=== PATIENT | male | born 1980 | race Caucasian/White ===

== ENCOUNTER 2017-12-30 06:49 | Emergency (ER) | payer OTHER ==
[2017-12-30] MEDS ORDERED: LIDOCAINE 1% INJ-PF (10 MG/ML) 30 ML SDV INJ ONE (07:44)
[2017-12-30] MEDS ORDERED: OXYCODONE-ACETAMINOPHEN 5-325 MG TABLET PO ONE (07:50)
[2017-12-30 08:38] LABS: ABSOLUTE BASOPHILS # (AUTO) 0.1 10^3/uL (0.0-0.2); ABSOLUTE EOSINOPHILS # (AUTO) 0.2 10^3/uL (0.0-0.6); ABSOLUTE LYMPHOCYTES (AUTO) 2.3 10^3/uL (0.5-4.7); ABSOLUTE NEUT (AUTO) 9.4 10^3/uL (1.7-8.2); BASOPHILS % (AUTO) 0.5 % (0-2); EOSINOPHILS % (AUTO) 1.7 % (0-6); HEMATOCRIT 44.7 % (37.9-51.0); LYMPHOCYTES % (AUTO) 17.7 % (13-45); MEAN CORPUSCULAR HEMOGLOBIN 27.8 pg (27.0-33.4); MEAN CORPUSCULAR HGB CONC 33.6 g/dL (32.0-36.0); MEAN CORPUSCULAR VOLUME 83 fl (80-97); MONOCYTES % (AUTO) 7.6 % (3-13); PLATELET COUNT 269 10^3/uL (150-450); RED BLOOD COUNT 5.41 10^6/uL (4.35-5.55); RED CELL DISTRIBUTION WIDTH 13.5 % (11.5-14.0); SEGMENTED NEUTROPHILS % (AUTO) 72.5 % (42-78); TOTAL CELLS COUNTED % (AUTO) 100 %
[2017-12-30 08:46] LABS: ANION GAP 10 (5-19); BLOOD UREA NITROGEN 21 mg/dL (7-20); CALCIUM 8.9 mg/dL (8.4-10.2); CARBON DIOXIDE 26 mmol/L (22-30); CHLORIDE 106 mmol/L (98-107); GLUCOSE 110 mg/dL (75-110); POTASSIUM 4.4 mmol/L (3.6-5.0); SODIUM 142.2 mmol/L (137-145)
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
[2017-12-30 10:59] VITALS: BP 134/70
== END 2017-12-30 11:08 | disposition home or self-care (01) ==
LOC: ER 06:49
PROC: 0HQLXZZ Repair Left Lower Leg Skin, External Approach (ICD-10-PCS; principal; 2017-12-30)
DX: S81.012A Laceration without foreign body, left knee, initial encounter (principal); S30.810A Abrasion of lower back and pelvis, initial encounter; S16.1XXA Strain of muscle, fascia and tendon at neck level, initial encounter; S39.012A Strain of muscle, fascia and tendon of lower back, initial encounter; M79.641 Pain in right hand; R10.9 Unspecified abdominal pain; M79.642 Pain in left hand; M25.562 Pain in left knee; M54.9 Dorsalgia, unspecified; M54.2 Cervicalgia; G89.29 Other chronic pain; R10.30 Lower abdominal pain, unspecified; R11.10 Vomiting, unspecified; R10.811 Right upper quadrant abdominal tenderness; V89.2XXA Person injured in unspecified motor-vehicle accident, traffic, initial encounter
CPT/HCPCS: 99284; 36415; 85025; 80048; 73564; 73130; 70450; 71260; 72125; 74177; 12001; L0120; J3490

== ENCOUNTER 2018-04-04 19:38 | Emergency (ER) | payer SELFPAY ==
[2018-04-04] MEDS ORDERED: ASPIRIN 81 MG TABLET, CHEWABLE PO ONE (19:41)
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
[2018-04-04] MEDS ORDERED: DIAZEPAM 5 MG TABLET PO ONE (20:30)
[2018-04-04] MEDS ORDERED: KETOROLAC TROMETHAMINE 60 MG/2 ML SDV IM ONE (20:30)
--- NOTE | 2018-04-04 20:30 | ER Document Report ---
ED General - General Chief Complaint: Chest Pain Stated Complaint: CHEST PAIN Time Seen by Provider: 04/04/18 20:18 Mode of Arrival: Ambulatory Information source: Patient Notes: History of Present Illness Chief Complaint:[ chest pain] [ ] History obtained from [patient] 38 years old presents today with right-sided chest pain radiating to the right back since last evening. He was typing for a long time and the pain occurred during the typing. As long as he stays still the pain is less but when he tried to move backwards or try to sleep pain increases in intensity. Once he lays on the bed the pain goes away. He was concerned therefore he came to the ED. Is not associated with any nausea vomiting palpitation or diaphoresis. Symptoms began:[ today] Onset: [gradual] Timing: [constant, now gone] Quality: ["pain"] Intensity: [moderate] Location: [Right chest wall] Radiation: [none] Migration: [none] Aggravating factors: [none] Relieving factors: [none] Major PE risk factors: [none] Major aortic dissection risk factors: [none] Review of Systems: All other systems negative as reviewed. CONSTITUTIONAL No fever, No chills, No sweats. EYES No eye pain. ENT No URI symptoms, No sore throat, No ear pain. CARDIOVASCULAR + chest pain, No palpitations, No edema. RESPIRATORY No Cough, No SOB, No wheezing. GASTROINTESTINAL No abdominal pain, No nausea, No diarrhea, No vomiting, No GI Bleeding. GENITOURINARY No UTI symptoms. MUSCULOSKELETAL No back pain, No calf swelling, No calf pain. SKIN No Rash. NEUROLOGIC No Headache Physical Exam CONSTITUTIONAL Vital signs reviewed, Patient appears comfortable, Alert and oriented X 3, Normal stature. Morbid obesity HEAD Atraumatic, Normocephalic. EYES Eyes are normal to inspection, No discharge from eyes, Extraocular muscles intact, Sclera are normal, Conjunctiva are normal. ENT Ears normal to inspection, Nose examination normal, Posterior pharynx normal, Mouth normal to inspection. NECK Normal ROM, No jugular venous distention, No meningeal signs, no carotid bruit. RESPIRATORY CHEST Chest is sharply tender over the right trapezoid muscle along the scapula as well as right anterior chest wall., Breath sounds normal, No respiratory distress. CARDIOVASCULAR RRR, No murmurs, Normal S1 S2, No rub, No gallop. ABDOMEN Abdomen is nontender, No pulsatile masses, No other masses, Bowel sounds normal , No distension, No peritoneal signs, No hernias. BACK There is no CVA Tenderness, There is no tenderness to palpation, Normal inspection. UPPER EXTREMITY Inspection normal, No cyanosis, No clubbing, No edema, 2+ radial pulses. LOWER EXTREMITY Inspection normal, No cyanosis, No clubbing, No edema, No calf tenderness, 2+ femoral pulses. NEURO No focal motor deficits, No focal sensory deficits, Speech normal. SKIN Skin is warm, Skin is dry, Skin is normal color. LYMPHATIC No adenopathy in neck. PSYCHIATRIC Normal affect. TRAVEL OUTSIDE OF THE [place] IN LAST 30 DAYS: No - HPI Notes: Dictated - Related Data Allergies/Adverse Reactions: Penicillins Allergy (Verified 12/30/17 07:48) Past Medical History - Social History Smoking Status: Never Smoker Smoking Education Provided: No Frequency of alcohol use: Occasional Drug Abuse: None Lives with: Family Family History: Reviewed & Not Pertinent Patient has suicidal ideation: No Patient has homicidal ideation: No Renal/ Medical History: Denies: Hx Peritoneal Dialysis - Immunizations Hx Diphtheria, Pertussis, Tetanus Vaccination: Yes Review of Systems - Review of Systems Notes: Dictated Physical Exam - Vital signs Vitals: Temp Pulse Resp BP Pulse Ox 99.1 F 90 18 145/81 H 94 04/04/18 19:51 04/04/18 19:51 04/04/18 19:51 04/04/18 19:51 04/04/18 19:51 - Notes Notes: Dictated Course - Re-evaluation Re-evalutation: 04/04/18 20:27 Given Toradol - Vital Signs Vital signs: Temp Pulse Resp BP Pulse Ox 99.1 F 90 18 145/81 H 94 04/04/18 19:51 04/04/18 19:51 04/04/18 19:51 04/04/18 19:51 04/04/18 19:51 - Diagnostic Test Radiology reviewed: Reports reviewed - Reported by radiologist as normal - EKG Interpretation by Ut EKG shows normal: Sinus rhythm - Sinus rhythm at the rate of 80 bpm, normal axis no acute ST elevation ST depression T wave changes noted. Discharge - Discharge Clinical Impression: Chest wall pain Trapezius muscle strain Qualifiers: Encounter type: initial encounter Laterality: right Qualified Code(s): S46.811A - Strain of other muscles, fascia and tendons at shoulder and upper arm level, right arm, initial encounter Condition: Fair Disposition: HOME, SELF-CARE Instructions: Chest Wall Pain ([facility]) Prescriptions: Baclofen [Baclofen 20 Mg Tablet] 20 mg PO TID #30 tablet Diazepam [Valium 5 mg Tablet] 5 mg PO BID #10 tablet Naproxen Sodium [Naprelan] 500 mg PO BID #60 tablet.sa
[2018-04-04 20:44] VITALS: BP 113/75
--- NOTE | 2018-04-05 07:57 | EKG REPORT ---
SEVERITY:- BORDERLINE ECG - SINUS RHYTHM BORDERLINE R WAVE PROGRESSION, ANTERIOR LEADS : Confirmed by: Fei Edward MD 05-Apr-2018 07:56:36
== END 2018-04-04 20:50 | disposition home or self-care (01) ==
LOC: ER 19:38
DX: S46.811A Strain of other muscles, fascia and tendons at shoulder and upper arm level, right arm, initial encounter (principal); R07.9 Chest pain, unspecified; M54.9 Dorsalgia, unspecified; X58.XXXA Exposure to other specified factors, initial encounter; Z88.0 Allergy status to penicillin
CPT/HCPCS: 93005; 99285; 96372; 71045; 93010; J1885

== ENCOUNTER 2019-09-10 18:17 | Emergency (ER) | payer BC ==
--- NOTE | 2019-09-10 18:58 | RADIOLOGY REPORT (SQ) ---
EXAM DESCRIPTION: CHEST SINGLE VIEW COMPLETED DATE/TIME: 09/10/2019 6:49 pm REASON FOR STUDY: sob COMPARISON: 04/04/2018 EXAM PARAMETERS: NUMBER OF VIEWS: One view. TECHNIQUE: Single frontal radiographic view of the chest acquired. RADIATION DOSE: NA LIMITATIONS: None. FINDINGS: LUNGS AND PLEURA: No opacities, masses or pneumothorax. No pleural effusion. MEDIASTINUM AND HILAR STRUCTURES: No masses. Contour normal. HEART AND VASCULAR STRUCTURES: Heart normal in size. Normal vasculature. BONES: No acute findings. HARDWARE: None in the chest. OTHER: No other significant finding. IMPRESSION: NO ACUTE RADIOGRAPHIC FINDING IN THE CHEST. TECHNICAL DOCUMENTATION: JOB ID: [id number] 2010 [employer]- All Rights Reserved Reading location - IP/workstation name: [email or web address]
[2019-09-10 19:09] LABS: A TYPE INFLUENZA AG NEGATIVE (NEGATIVE); B INFLUENZA AG NEGATIVE (NEGATIVE)
--- NOTE | 2019-09-10 19:15 | ER Document Report ---
ED General - General Chief Complaint: Leg Pain Stated Complaint: LEG PAIN Time Seen by Provider: 09/10/19 18:45 Mode of Arrival: Ambulatory Information source: Patient TRAVEL OUTSIDE OF THE [place] IN LAST 30 DAYS: No - HPI Onset: Other - 2-3 days ago Onset/Duration: Gradual Quality of pain: Burning, Throbbing Severity: Moderate Pain Level: 3 Associated symptoms: Body/muscle aches, Chills, Fever Exacerbated by: Other - palpation of left lower leg, movement of left lower leg, weight bearing with left leg Similar symptoms previously: No Recently seen / treated by doctor: Yes - PCP 2 days ago and tested for Flu (negative) and COVID (pending) Notes: 39 year old male with a history of Obesity here for a painful, red, swollen left lower leg for the last 2-3 days. The patient apparently also has been having some URI symptoms (cough, congestion, body aches) and he has been tested for COVID but does not have the results. The patient says his URI symptoms are improving but his his leg pains are worsening. The patient denies trauma to his leg. 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 The patient denies fevers, chills, sweats. - Related Data Allergies/Adverse Reactions: Penicillins Allergy (Verified 09/10/19 18:29) Past Medical History - General Information source: Patient - Social History Smoking Status: Never Smoker Frequency of alcohol use: Occasional Drug Abuse: None Family History: Reviewed & Not Pertinent Patient has suicidal ideation: No Patient has homicidal ideation: No Renal/ Medical History: Denies: Hx Peritoneal Dialysis - Immunizations Hx Diphtheria, Pertussis, Tetanus Vaccination: Yes Review of Systems - Review of Systems Constitutional: Fever EENT: Nose congestion Cardiovascular: No symptoms reported Respiratory: Cough Gastrointestinal: No symptoms reported Genitourinary: No symptoms reported Male Genitourinary: No symptoms reported Musculoskeletal: Other - body aches Skin: No symptoms reported Hematologic/Lymphatic: No symptoms reported Neurological/Psychological: No symptoms reported -: Yes All other systems reviewed and negative Physical Exam - Vital signs Vitals: Temp Pulse Resp BP Pulse Ox 98.7 F 90 20 124/71 97 09/10/19 18:42 09/10/19 18:42 09/10/19 18:42 09/10/19 18:42 09/10/19 18:42 - Notes Notes: GENERAL: Obese, well-appearing, well-nourished and in no acute distress. HEAD: Atraumatic, normocephalic. EYES: Pupils equal round and reactive to light, extraocular movements intact, sclera anicteric, conjunctiva are normal. ENT: Nares patent, oropharynx clear without exudates. Moist mucous membranes. NECK: Normal range of motion, supple without lymphadenopathy or JVD. LUNGS: Breath sounds clear to auscultation bilaterally and equal. No wheezes rales or rhonchi. HEART: Regular rate and rhythm without murmurs, rubs or gallops. ABDOMEN: Soft, nontender, normoactive bowel sounds. No guarding, no rebound. No masses appreciated. EXTREMITIES: Normal range of motion. Left lower leg is swollen and tender to palpation. No clubbing or cyanosis. NEUROLOGICAL: Cranial nerves II through XII grossly intact. Normal speech, n ormal gait. PSYCH: Normal mood, normal affect. SKIN: Warm, Dry, normal turgor. Left lower leg is erythematous and warm to touch. There are some areas on his link of skin break down adn scabbing on shins Course - Re-evaluation Re-evalutation: 09/10/19 22:59 The patient is here for a painful red swollen left lower leg. He also has URI like symptoms with an outpatient COVID19 test pending. Patient clearly has a cellulitis on my exam. 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 - Vital Signs Vital signs: Temp Pulse Resp BP Pulse Ox 98.7 F 90 20 124/71 97 09/10/19 18:42 09/10/19 18:42 09/10/19 18:42 09/10/19 18:42 09/10/19 18:42 - Diagnostic Test Radiology reviewed: Image reviewed, Reports reviewed Discharge - Discharge Clinical Impression: Cellulitis Qualifiers: Site of cellulitis: extremity Site of cellulitis of extremity: lower extremity Laterality: left Qualified Code(s): L03.116 - Cellulitis of left lower limb Condition: Stable Disposition: HOME, SELF-CARE Instructions: Cellulitis ([facility]) Additional Instructions: Take Clindamycin as prescribed for your left leg infection. Drink plenty of fluids in the days to come. Follow up with your primary care doctor if symptoms persist despite treatment. Use Tylenol and Motrin for pain and fevers. You had an ultrasound in the ER today showing no signs of blood clot. Prescriptions: Clindamycin HCl [Cleocin 150 mg Capsule] 450 mg PO TID 7 Days #63 capsule
--- NOTE | 2019-09-10 21:45 | RADIOLOGY REPORT (SQ) ---
INDICATION: eval for DVT in left leg. Left lower extremity pain PROCEDURE: Real-time grayscale, color, and pulse Doppler ultrasound imaging of the left lower extremity deep venous system was performed. 38 images. Technically difficult due to patient body habitus. COMPARISON: None FINDINGS: The common femoral, superficial femoral, and popliteal veins demonstrate normal compressibility, phasic flow, augmentation and sandoval scale evaluation. There is no evidence of intraluminal thrombus . The visualized deep calf veins appear patent. Contralateral right common femoral vein appears be patent IMPRESSION: No evidence for acute deep venous thrombus from the common femoral to the popliteal veins. Technically challenging due to patient body habitus and resultant artifact
[2019-09-10] MEDS ORDERED: CLINDAMYCIN HCL 150 MG CAPSULE PO ONE (22:30)
[2019-09-10 23:10] VITALS: BP 119/71
--- NOTE | 2019-09-11 14:18 | ER Document Report ---
Doctor's Note Notes: 09/11/19 14:17 Chart accessed at this time as the [facility] pharmacy called to verify the prescription details. The prescription as it is written in the note was read back to the pharmacist and verified as 450 mg p.o. 3 times daily x7 days.
== END 2019-09-10 23:10 | disposition home or self-care (01) ==
LOC: ER 18:17
DX: L03.116 Cellulitis of left lower limb (principal); M79.662 Pain in left lower leg; M79.10 Myalgia, unspecified site; R50.9 Fever, unspecified; R05 Cough; E66.9 Obesity, unspecified; Z88.0 Allergy status to penicillin
CPT/HCPCS: 71045; 87070; 87077; 87804; 87880; 93971; 99283